=== PATIENT | male | born 1995 | race African-American/Black ===

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

== ENCOUNTER 2019-04-14 21:26 | Emergency (ER) | payer SELFPAY ==
[2019-04-14] MEDS ORDERED: Sodium Chloride 0.9% 1000 ML 1,000 ML ONE (21:47)
[2019-04-14] MEDS ORDERED: Sodium Chloride 0.9% 1000 ML 1,000 ML IV STA ×2 (21:49→23:59)
[2019-04-14] MEDS ORDERED: Amidate 20 MG/10 ML IV ONE (21:49)
[2019-04-14] MEDS ORDERED: Zemuron 100 MG/10 ML IV ONE (21:49)
[2019-04-14] MEDS ORDERED: NARCAN 2 MG/2 ML IV ONE (21:52)
--- NOTE | 2019-04-14 21:53 | ERPHSYRPT ---
- History of Present Illness Allergies/Adverse Reactions: No Known Drug Allergies Allergy (Verified 02/25/13 01:16) Hx Tetanus, Diphtheria Vaccination/Date Given: No Hx Influenza Vaccination/Date Given: No Hx Pneumococcal Vaccination/Date Given: No - Past Medical History Pertinent Past Medical History: No - Past Surgical History Past Surgical History: No - Social History Smoking Status: Never smoker Exposure to second hand smoke: No Alcohol Use: None Drug Use: marijuana Patient Lives Alone: No Significant Family History: no pertinent family hx - Departure Referrals: NABEEL DAVIS [Primary Care Provider] -
[2019-04-14 22:11] LABS: Hematocrit 48.3 % (42-50); Hemoglobin 15.6 gm/dl (12.5-18.0); Mean Cell Volume 89.1 fl (78-100); Mean Corpuscular Hemoglobin 28.8 pg (26-32); Mean Corpuscular Hgb Concent. 32.3 g/dl (32-36); Mean Platelet Volume 9.2 fl (6-9.5); Platelet Count 323 K/mm3 (150-450); Red Blood Count 5.42 M/mm3 (4.1-5.6); Red Cell Distribution Width 13.4 % (11.5-14.0)
[2019-04-14 22:14] LABS: INR 1.24 (0.8-3.0); PROTIME 14.1 SECONDS (8.83-12.87)
[2019-04-14 22:16] LABS: PTT 37.7 SECONDS (24.1-36.1)
[2019-04-14] MEDS ORDERED: Propofol 1000 mg/100 ml Bottle 100 ML IV PRN (22:24)
[2019-04-14 22:25] LABS: ALBUMIN 4.6 g/dL (3.5-5.0); ANION GAP 20.5 MEQ/L (5-15); BILIRUBIN,TOTAL 0.6 mg/dL (0.2-1.3); Calcium 8.6 mg/dL (8.4-10.2); Creatinine 1 2.94 mg/dL (0.66-1.25); MAGNESIUM 2.3 mg/dL (1.6-2.3); Potassium 5.2 mmol/L (3.5-5.1)
[2019-04-14 22:29] LABS: White Blood Count 26.7 K/mm3 (4.0-10.5)
[2019-04-14 22:43] LABS: Appearance SLIGHTLY CLOUDY (CLEAR); Bilirubin NEGATIVE (NEGATIVE); Blood LARGE Ery/ul (0-5); Glucose 50 mg/dL (NEGATIVE); Ketones NEGATIVE (NEGATIVE); Leukocyte Esterase NEGATIVE (NEGATIVE); Mucus SLIGHT /HPF (NEGATIVE); Nitrite NEGATIVE (NEGATIVE); Protein,Urine Dip 100 (Negative); RBC 0-2 /HPF (0-2); Specific Gravity 1.008 (1.005-1.025); Urobilinogen NEGATIVE mg/dL (0-1); WBC 0-2 /HPF (0-5)
[2019-04-14 22:44] LABS: Bacteria NONE SEEN /HPF (NEGATIVE)
[2019-04-14 23:27] LABS: BAND 7 % (0.0-2.0); Lymphocytes 4 % (24-44); Monocyte 12 % (0.0-12.0); Neutrophils 77 % (36.-66.); Platelet Estimate NORMAL (NORMAL); Total Cells Counted 100
[2019-04-14 23:29] LABS: VBG BASE EXCESS -11.6 (-2.0-2.0); VBG CARBOXYHEMOGLOBIN 3.5 % T HGB (0.0-6.9); VBG HCO3- 25.3 meq/L (22-28); VBG HEMOGLOBIN 15.7; VBG O2 SATURATION 78.3 (95-100); VBG POTASSIUM 5.2 (3.5-5.1)
[2019-04-14 23:30] LABS: VBG pH 6.89 (7.32-7.42)
[2019-04-14 23:36] LABS: Lactic Acid 4.6 (0.4-2.0)
[2019-04-14 23:38] LABS: Amphetamine,Urine NEGATIVE (NEGATIVE); Barbiturate,Urine NEGATIVE (NEGATIVE); Benzodiazepine,Urine NEGATIVE (NEGATIVE); Cocaine,Urine NEGATIVE (NEGATIVE); Methadone,Urine NEGATIVE (NEGATIVE); Opiate,Urine NEGATIVE (NEGATIVE); PCP,Urine NEGATIVE (NEGATIVE); THC,Urine NEGATIVE (NEGATIVE)
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
[2019-04-15] MEDS ORDERED: Sodium Chloride 0.9% 1000 ML 1,000 ML ONE (00:05)
[2019-04-15] MEDS ORDERED: ROCEPHIN 1 Gm-D5w 50 ml Bag** 1 G/50 ML IVPB IV STA (00:09)
[2019-04-15 00:25] VITALS: O2SAT 88
[2019-04-15 00:27] VITALS: BP 104/82; PULSE 108
[2019-04-15] MEDS ORDERED: ROCEPHIN 1 Gm-D5w 50 ml Bag** 1 G/50 ML IVPB IV ONE (00:37)
--- NOTE | 2019-04-15 09:16 | XRAY ---
Exam: AP supine portable chest film from 9:50 PM on 04/14/2019. Comparison: None. Indication: ET tube placement. Findings: The heart size is within normal limits for this AP supine portable technique obtained at a 45 inch tube film distance. Endotracheal tube tip is seen projected over the airway at the C6-C7 interspace level at the base of the neck. This should be advanced. The laurita and mediastinal structures appear unremarkable. There is no mediastinal widening or shift. The peripheral lungs are clear. No pneumothorax, vascular congestion, or pleural fluid is seen. Abundant air is seen within the stomach lumen in the visualized left upper quadrant. Impression: 1. Endotracheal tube tip is seen projected over the lower neck at the C6-C7 level within the projection of the airway. This should be advanced. 2. No other acute cardiopulmonary disease is seen. 3. Abundant air is seen within the stomach within the left upper quadrant.
--- NOTE | 2019-04-15 09:22 | XRAY ---
Exam: AP portable supine chest film from 9:57 PM on 04/14/2019. Comparison: AP portable supine chest film from 04/14/2019. Indication: ET tube placement. The heart size is probably within normal limits for this AP portable technique. There is increased elevation right hemidiaphragm with slight shift of the heart and mediastinum as well as the trachea toward the right suggesting some generalized volume loss within the right lung field. Correlate clinically regarding a mucous plug within the right mainstem bronchus. Endotracheal tube tip is again seen in the projection of the trachea at the upper C7 level. The left lung is well expanded and appears clear. There has been interval placement of a NG tube with the gap marker just proximal to the gastroesophageal junction. This should be advanced about 2 inches. Prior prominent air within the left upper quadrant of the abdomen is no longer seen. The bones appear unremarkable. Impression: 1. Endotracheal tube tip is still seen within the projection of the lower neck at the upper C7 level. 2. There appears to be mild generalized volume loss within the right lung as compared the left lung and as compared to the earlier radiograph.This would suggest partial right lung atelectasis. Correlate clinically regarding a mucous plug within the right mainstem bronchus. 3. The left lung is well expanded and appears clear. 4. NG tube has been placed. Although the tip is in the projection of the fundus of the stomach, the gap marker is seen just proximal to the anticipated gastroesophageal junction. Although it appears that much of the air within the left upper quadrant has been decompressed, I would recommend advancing the NG tube about 2 inches.
--- NOTE | 2019-04-15 09:32 | XRAY ---
Exam: AP supine portable chest film from 10:01 PM on 04/14/2019. Comparison: AP portable supine chest film from 9:57 PM on 04/14/2019. Indication: ET tube placement. Findings: The heart size is probably within normal limits. I believe there is some granulomatous calcification inferior and to the right of the [place]. Endotracheal tube has been advanced slightly and is now near the inferior vertebral endplate of C7. This is located about 10.8 cm above the [place]. This should probably be advanced. I still note some volume loss within the right lung as compared to the left lung manifested by mild elevation right hemidiaphragm and mild shift of the trachea and heart toward the right. Consider a mucous plug within the right mainstem bronchus. A small calcified granuloma is seen within the central right lung base. The left lung is hyperexpanded and appears relatively clear. No central vascular congestion, pneumothorax, or pleural fluid is seen. NG tube is seen with the tip barely within the fundus of the stomach. The gap marker is proximal to the gastroesophageal junction. I would advance the NG tube about 5 cm. No acute skeletal findings are seen. Impression: 1. Endotracheal tube has been slightly remanipulated with the tip pointing inferiorly within the projection of the trachea at the lower C7 level about 10.8 cm above the [place]. This should be advanced. 2. I again note some mild generalized volume loss within the right lung as compared to the left lung. This would suggest some mild generalized right lung atelectasis. Consider a mucous plug within the right mainstem bronchus. 3. NG tube in unchanged position. I would suggest advancing the NG tube about 5 cm. 4. Old healed granulomatous disease. No active lung disease is seen.
== END 2019-04-15 01:00 | disposition short-term general hospital (02) ==
LOC: ED 21:26
DX: R40.20 Unspecified coma (principal); E87.2 Acidosis; N17.9 Acute kidney failure, unspecified; R74.8 Abnormal levels of other serum enzymes
CPT/HCPCS: 36000; 36415; 71045; 80053; 80307; 81001; 82805; 83605; 83735; 83880; 84484; 85025; 85610; 85730; 87040; 87086; 93005; 93041; 94002; 96365; 96367; 96374; 96375; 99285; 99291; J0696; J2310; J2704; G0480